=== PATIENT | female | born 1950 | race Caucasian/White ===

== ENCOUNTER → 2017-02-02 | Outpatient (CLI) | payer OTHER ==
[2015-08-18 16:56] VITALS: BP 184/89
--- NOTE | 2017-02-02 13:27 | MG ---
HISTORY: SCREENING Comparison: Multiple priors dating back to 12/22/2014 FINDINGS: Bilateral CC and MLO projections of the right and left breast were obtained. Dense fibroglandular t issue is seen to be present. No significant architectural distortion, mass or clustered microcalcif ications can be observed to suggest malignancy. No skin thickening or nipple retraction is apprecia samir. No pathological lymphadenopathy can be identified. Benign-appearing calcifications scattered throughout the right and left breasts are observed. IMPRESSION: NO RADIOGRAPHIC EVIDENCE OF MALIGNANCY. ACR CATEGORY: 2 - benign findings. FOLLOW-UP EXAM 1 YEAR. Diagnostic CAD was utilized and reviewed. * 0 (ZERO) - ASSESSMENT INCOMPLETE; ADDITIONAL IMAGING IS NEEDED. * 1/ (ONE) - NEGATIVE. * 2/II (TWO) - BENIGN FINDINGS. * 3/III (THREE) - PROBABLY BENIGN FINDING; SHORT INTERVAL FOLLOW-UP SUGGESTED. * 4/IV (FOUR) - SUSPICIOUS ABNORMALITY; BIOPSY SHOULD BE CONSIDERED. * 5/V - HIGHLY SUSPICIOUS OF MALIGNANCY; BIOPSY SHOULD BE PERFORMED. A NEGATIVE X-RAY REPORT SHOULD NOT DELAY BIOPSY IF A DOMINANT OR CLINICALLY SUSPICIOUS MASS IS PRESENT; 4 TO 8 PERCENT OF CANCERS ARE NOT IDENTIFIED BY X-RAY. A NEG ATIVE REPORT MAY REINFORCE THE CLINICAL IMPRESSION. ADENOSIS AND DENSE BREASTS MAY OBSCURE AN UNDER LYING NEOPLASM. Reported By:
== END ==
LOC: RAD 08:15
PROVIDERS: ATTEND Nurse Practitioner Family
DX: Z12.31 Encounter for screening mammogram for malignant neoplasm of breast (principal)
CPT/HCPCS: 77067

== ENCOUNTER → 2017-03-28 | Outpatient (CLI) | payer OTHER ==
[2015-08-18 16:56] VITALS: BP 184/89
[~2017-03-28] MED LIST: NS 100 ML IV 100 ML IV ONE
[2017-03-28 08:22] LABS: ALANINE AMINOTRANSFERASE 22 Units/L (12-78); ALBUMIN 3.2 g/dL (3.4-5.0); ALKALINE PHOSPHATASE 54 Units/L (46-116); ASPARTATE AMINO TRANSFERASE 13 Units/L (15-37); BLOOD UREA NITROGEN 11 mg/dL (7-18); CARBON DIOXIDE 29.9 mmol/L (21-32); CHLORIDE 100 mmol/L (98-107); COR CA(FOR HYPOALB) 9.6 mg/dL (8.5-10.1); COR NA(FOR HYPERGLY) 131 mmol/L (136-145); CREATININE 0.68 mg/dL (0.55-1.02); GLUCOSE 172 mg/dL (65-99); SODIUM 129 mmol/L (136-145); TOTAL PROTEIN 7.4 g/dL (6.4-8.2); eGFR BLACK RACES > 60 (>60); eGFR NON BLACK RACES > 60 (>60)
--- NOTE | 2017-03-28 11:17 | CT ---
HISTORY: Right upper quadrant pain, right lower quadrant pain Study: CT abdomen pelvis with contrast Comparison: January 01, 2014 Technique: Axial post-contrast images with coronal and sagittal reformats. Dose reduction procedures were used with MA/kv adjusted for body size. Findings: The lung bases are clear. The liver, spleen, adrenal glands, and pancreas are within normal limits. No opaque stones are visible within the gallbladder. There is a sub centimeter benign hepatic cyst p resent. The kidneys are unobstructed and without stones or masses. No ureteral calculi are identifie d. Calcific atherosclerotic change is present in a nondilated abdominal aorta. No enlarged intraperi toneal or retroperitoneal lymphadenopathy is identified. The appendix is not identified with absolut e certainty. There are no secondary signs of appendicitis present. There are no findings suggestive of diverticulitis or colitis. Examination of the pelvis demonstrated no evidence for pelvic masses, pelvic fluid, or pelvic lymphadenopathy. No bladder abnormality is identified. No enlarged inguinal adenopathy is present. No abnormal inguinal masses are identified. There is no evidence for right gr oin hematoma or pseudoaneurysm. No lytic or blastic skeletal lesions are identified. IMPRESSION: No significant abnormality identified Reported By:
== END ==
LOC: RAD 07:34
PROVIDERS: ATTEND Nurse Practitioner Family
DX: R10.31 Right lower quadrant pain (principal); R10.11 Right upper quadrant pain; K21.9 Gastro-esophageal reflux disease without esophagitis
CPT/HCPCS: 36415; 74177; 80053; A4222

== ENCOUNTER 2018-02-24 09:25 | Emergency (ER) | payer MEDICAID, OTHER ==
[2018-02-24 09:30] VITALS: BMI 27.6
[2018-02-24] MEDS ORDERED: NITROGLYCERIN IV PREMIX 50 MG 50 MG/250 ML BAG IV PRN (09:32)
--- NOTE | 2018-02-24 09:39 | DR.CP ---
HPI - Time Seen Time seen: 09:20 - PCP Primary Care Physician: DENIZ FAIRCHILD - Complaint Chief Complaint:: PT C/O TIGHTNESS IN HER CHEST WITH HER HEART FEELING LIKE IT IS RACING. PT STATES SHE FEELS LIKE SHE IS GOING TO PASS OUT. PT STATES SHE STARTED FEELING LIKE THIS LAST NIGHT, BUT IT HAS GOTTEN WORSE THIS AM. - Reviewed Nurses Notes Review: Yes - Source History Provided: Patient - Mode of Arrival Mode of Arrival: Ambulatory - Timing Onset of Chief Complaint: 02/23/18 Came on: Gradually Pain: Present Now - Duration Duration: Since Onset - Context History of: IN, Angioplasty PMH - PMH Past Medical History: Yes Past Medical History: Coronary Artery Disease, Diabetes, Hypertension Past Surgical History: Yes Surgical History: Angioplasty/Stents, Hysterectomy - Family History History of Family Medical Conditions: Yes Family Medical History: Sudden Cardiac - Social History Does any household member use tobacco: No Alcohol Use: None Do you use any recreational Drugs:: No Lives With: Family Lives Where: Home - infectious screening In the last 2 months have you had wt loss of >10#?: NO Have you had fever, night sweats or hemotysis?: No Have you traveled outside the country in the last 6 months?: No Isolation: Standard ROS - Review of Systems Constitutional: See HPI Eyes: Tearing (chronic left eye tearing) ENTM: No Symptoms Reported Respiratoy: No Symptoms Reported Cardiovascular: Chest Pain, Palpitations Gastrointestinal/Abdominal: No Symptoms Reported Genitourinary: No Symptoms Reported Neurological: Anxiety Musculoskeletal: No Symptoms Reported Integumentary: No Symptoms Reported Hematologic/Lymphatic: No Symptoms Reported Endocrine: No Symptoms Reported Psychiatric: No Symptoms Reported All Other Systems: Reviewed and Negative PE - Vitals Vitals: Temperature 97.6 F Pulse Rate [Apical] 37 Pulse Rate 48 Respiratory Rate 17 Blood Pressure [Left Arm] 176/74 Blood Pressure 211/89 O2 Sat by Pulse Oximetry 98 - General Limitations: No Limitations General Appearance: Alert, In No Apparent Distress, Anxious - Head Head Exam: Normal Inspection, Normocephalic - Eyes Eye exam: Normal Appearance - ENT ENT Exam: Normal Exam - Chest Chest Inspection: Normal Inspection - Respiratory Respiratory Exam: Normal Lung Sounds Bilat. negative: Accessory Muscle Use Respiratory Exam: Bilateral Clear to Auscultation - Cardiovascular Cardiovascular Exam: Regular Rate, Normal Rhythm, Bradycardia, Normal Heart Sounds. negative: Systolic Murmur, Diastolic Murmur, Rubs, Gallop, Clicks Pulse: Normal Edema: Normal - Abdominal Exam Abdominal Exam: Normal Inspection, Normal Bowel Sounds, Soft. negative: Tenderness - Extremities Extremities Exam: Normal Inspection, Full ROM. negative: Edema - Neurologic Neurological Exam: Alert, Oriented X3 - Psychiatric Psychiatric Exam: Normal Affect, Normal Mood - Skin Skin Exam: Warm, Dry, Intact. negative: Diaphoresis, Pallor Course - Consultation Consultation Comments: spoke with Dr Daniels(cards) and Dr Corbett([facility]). OK to transfer [facility] for [facility] ROR - Labs Reviewed Laboratory Results Reviewed?: Yes (labs reviewed w/pt and family) Result Diagrams: 02/24/18 09:40 02/24/18 09:40 Laboratory: WBC 12.3 X10^3/uL (3.6-10.0) H 02/24/18 09:40 RBC 4.72 X10^6/uL (3.5-5.4) 02/24/18 09:40 Hgb 13.7 g/dL (12.0-16.0) 02/24/18 09:40 Hct 39.7 % (36.0-47.0) 02/24/18 09:40 MCV 84.2 fL (80.0-100.0) 02/24/18 09:40 MCH 29.0 pg (27.0-34.0) 02/24/18 09:40 MCHC 34.4 g/dL (33.0-35.0) 02/24/18 09:40 RDW 15.9 % (11.6-16.5) 02/24/18 09:40 Plt Count 244 X10^3/uL (150.0-450.0) 02/24/18 09:40 MPV 8.4 fL (7.4-11.0) 02/24/18 09:40 Neut % (Auto) 57.1 % (42.0-75.0) 02/24/18 09:40 Lymph % (Auto) 32.8 % (21.0-51.0) 02/24/18 09:40 [place] % (Auto) 6.2 % (0.0-13.0) 02/24/18 09:40 Eos % (Auto) 2.2 % (0.9-2.9) 02/24/18 09:40 Baso % (Auto) 1.7 % (0.2-1.0) H 02/24/18 09:40 Neut # (Auto) 7.0 x10^3/uL (2.2-4.8) H 02/24/18 09:40 Lymph # (Auto) 4.0 X10^3/uL (1.3-2.9) H 02/24/18 09:40 [place] # (Auto) 0.8 x10^3/uL (0.3-0.8) 02/24/18 09:40 Eos # (Auto) 0.3 x10^3/uL (0.0-0.2) H 02/24/18 09:40 Baso # (Auto) 0.2 X10^3/uL (0.0-0.1) H 02/24/18 09:40 Absolute Nucleated RBC 0.0 /100WBC 02/24/18 09:40 INR Target Range - 02/24/18 09:40 INR 0.96 (0.8-1.3) 02/24/18 09:40 APTT 27.4 SECONDS (22.9-36.5) 02/24/18 09:40 PTT Comment - 02/24/18 09:40 D-Dimer 594 ng/mL (0-400) H* 02/24/18 09:40 Sodium 134 mmol/L (136-145) L 02/24/18 09:40 Corrected Sodium 138 mmol/L (136-145) 02/24/18 09:40 Potassium 4.2 mmol/L (3.5-5.1) 02/24/18 09:40 Chloride 100 mmol/L (98-107) 02/24/18 09:40 Carbon Dioxide 24.5 mmol/L (21-32) 02/24/18 09:40 BUN 14 mg/dL (7-18) 02/24/18 09:40 Creatinine 0.74 mg/dL (0.55-1.02) 02/24/18 09:40 Est GFR (MDRD) Af Amer > 60 (>60) 02/24/18 09:40 Est GFR (MDRD) Non-Af > 60 (>60) 02/24/18 09:40 Glucose 256 mg/dL (65-99) H 02/24/18 09:40 Calcium 8.8 mg/dL (8.5-10.1) 02/24/18 09:40 Corrected Calcium TNP 02/24/18 09:40 Magnesium 1.7 mg/dL (1.7-2.9) 02/24/18 09:40 Total Bilirubin 0.40 mg/dL (0.2-1.0) 02/24/18 09:40 AST 17 Units/L (15-37) 02/24/18 09:40 ALT 30 Units/L (12-78) 02/24/18 09:40 Alkaline Phosphatase 62 Units/L (46-116) 02/24/18 09:40 Creatine Kinase 27 Units/L (26-192) 02/24/18 09:40 CK-MB (CK-2) < 1.0 ng/mL (0-4.0) 02/24/18 09:40 CK/CKMB % Calc 3.7 % (<4) 02/24/18 09:40 Troponin I < 0.02 ng/mL (0-1.5) 02/24/18 09:40 Total Protein 7.4 g/dL (6.4-8.2) 02/24/18 09:40 Albumin 3.5 g/dL (3.4-5.0) 02/24/18 09:40 Globulin 3.9 g/dL (2.5-4.5) 02/24/18 09:40 Albumin/Globulin Ratio 0.9 Ratio (1.1-2.1) L 02/24/18 09:40 - XRAY XRAY Interpreted by: Radiologist XRAY Findings: nonacute - EKG Compared to prior EKG Dated: 10/26/14 (new 2:1AV block, rate 41) - Diagnosis Discharge Problem: Heart block AV second degree, Bradycardia with 41-50 beats per minute Chest pain Qualifiers: Chest pain type: unspecified Qualified Code(s): R07.9 - Chest pain, unspecified - Discharge Plan Disposition: XFER [facility]-TRM HOSP Condition: Stable - Follow ups/Referrals Follow ups/Referrals: Umberto Dumont [Primary Care Provider] - 3 days - Instructions
[2018-02-24] MEDS ORDERED: ASPIRIN EC 81 MG PO ONE (09:40)
[2018-02-24 09:48] LABS: BASOPHILS # (AUTO) 0.2 X10^3/uL (0.0-0.1); BASOPHILS % (AUTO) 1.7 % (0.2-1.0); EOSINOPHILS # (AUTO) 0.3 x10^3/uL (0.0-0.2); EOSINOPHILS % (AUTO) 2.2 % (0.9-2.9); HEMATOCRIT 39.7 % (36.0-47.0); HEMOGLOBIN 13.7 g/dL (12.0-16.0); LYMPHOCYTES % (AUTO) 32.8 % (21.0-51.0); MEAN CORPUSCULAR HGB CONC 34.4 g/dL (33.0-35.0); MEAN CORPUSCULAR VOLUME 84.2 fL (80.0-100.0); MEAN PLATELET VOLUME 8.4 fL (7.4-11.0); MONOCYTES # (AUTO) 0.8 x10^3/uL (0.3-0.8); MONOCYTES % (AUTO) 6.2 % (0.0-13.0); NEUTROPHILS % (AUTO) 57.1 % (42.0-75.0); PLATELET COUNT 244 X10^3/uL (150.0-450.0); RED BLOOD COUNT 4.72 X10^6/uL (3.5-5.4); RED CELL DISTRIBUTION WIDTH 15.9 % (11.6-16.5); WHITE BLOOD COUNT 12.3 X10^3/uL (3.6-10.0)
[2018-02-24 10:07] LABS: BLOOD UREA NITROGEN 14 mg/dL (7-18); CALCIUM 8.8 mg/dL (8.5-10.1); CARBON DIOXIDE 24.5 mmol/L (21-32); CHLORIDE 100 mmol/L (98-107); COR NA(FOR HYPERGLY) 138 mmol/L (136-145); CREATININE 0.74 mg/dL (0.55-1.02); SODIUM 134 mmol/L (136-145); TROPONIN I < 0.02 ng/mL (0-1.5); eGFR BLACK RACES > 60 (>60); eGFR NON BLACK RACES > 60 (>60)
[2018-02-24 10:11] LABS: ALANINE AMINOTRANSFERASE 30 Units/L (12-78); ALBUMIN 3.5 g/dL (3.4-5.0); ALKALINE PHOSPHATASE 62 Units/L (46-116); ASPARTATE AMINO TRANSFERASE 17 Units/L (15-37); CREATINE KINASE 27 Units/L (26-192); CREATINE KINASE MB < 1.0 ng/mL (0-4.0); MAGNESIUM 1.7 mg/dL (1.7-2.9); TOTAL PROTEIN 7.4 g/dL (6.4-8.2)
[2018-02-24 10:14] LABS: CKMB % 3.7 % (<4)
--- NOTE | 2018-02-24 10:14 | RAD ---
Examination: AP chest History: Tightness in chest Comparison 10/26/2014 Findings: Continued normal heart size with clear lungs and pleural spaces. Impression: No change; no acute chest findings. Reported By:
[2018-02-24] MEDS ORDERED: ASPIRIN 81 MG CHEWTAB ONE (10:27)
[2018-02-24] MEDS ORDERED: NITRO-BID OINT 2% Multi-Dose tube TD ONE (11:30)
[2018-02-24] MEDS ORDERED: NITRO-BID OINT 2% Multi-Dose tube ONE (11:35)
[2018-02-24 12:09] VITALS: BP 181/92
== END 2018-02-24 12:05 | disposition short-term general hospital (02) ==
LOC: ER 09:38
DX: R07.89 Other chest pain (principal); I44.1 Atrioventricular block, second degree; R00.1 Bradycardia, unspecified; R94.31 Abnormal electrocardiogram [ECG] [EKG]
CPT/HCPCS: 36415; 71045; 80053; 82550; 82553; 83735; 84484; 85025; 85378; 85610; 85730; 93005; 96365; 99284; A4222

== ENCOUNTER 2018-04-30 07:25 | Inpatient (IN) ==
[2018-04-30 07:42] VITALS: BMI 26.2
--- NOTE | 2018-04-30 07:51 | DR.NAUSEAF ---
HPI - Time Seen Time seen: 08:20 <MARIBEL LLANOS - Last Filed: 04/30/18 10:06> - Primary Care Physician Primary Care Physician: DENIZ FAIRCHILD - Complaints Chief Complaint Doctors Comments: HISTORY BELOW. Chief Complaint:: NAUSEA AND VOMITING ONSET AT 4AM. VOMITED X2. PAIN UNDER LEFT ARM PIT THAT HAS RESOLVED ON ADMISSION. SHE REPORTS IT FELT LIKE GAS AND IS BELCHING ON ARRIVAL. DENIES PAIN - Reviewed Nurses Notes Reviewed: Yes - Source History Provided: Patient, EMS - Mode of Arrival Mode of Arrival: EMS - Timing Onset of Chief Complaint: 04/30/18 - Context Onset: Spontaneous Recent: None : No History of: Diabetes - Quality Quality: Bilious - Associated Signs and Symptoms Abdominal Pain Quality: Other (NONE) Symptoms: denies: Fever <JAGRUTI LEWIS - Last Filed: 06/08/18 16:01> PMH - PMH Past Medical History: Yes Past Medical History: Coronary Artery Disease, Diabetes, Hypertension Past Surgical History: Yes Surgical History: Angioplasty/Stents, Hysterectomy Past Surgical History Comment: PACEMAKEER PLACED 1 MTH AGO - Family History History of Family Medical Conditions: Yes Family Medical History: Diabetes Mellitus, OR, Coronary Artery Disease, Heart Failure, Sudden Cardiac , Hypertension - Social History Do you use any recreational Drugs:: No Lives With: Alone Lives Where: Home - infectious screening In the last 2 months have you had wt loss of >10#?: NO Have you had fever, night sweats or hemotysis?: No Have you traveled outside the country in the last 6 months?: No Isolation: Standard <JAGRUTI LEWIS - Last Filed: 06/08/18 16:01> ROS - Review of Systems Constitutional: Weakness, Fatigue Eyes: No Symptoms Reported ENTM: No Symptoms Reported. negative: Ear Pain, Nose Discharge, Nose Congestion , Throat Pain Respiratoy: Short of Breath (ON EXERTION). negative: Productive Cough, Wheezing , Hemoptysis Cardiovascular: Other (PAIN LEFT ARM PIT) Gastrointestinal/Abdominal: Nausea, Vomiting. negative: Diarrhea Genitourinary: No Symptoms Reported Neurological: Weakness Musculoskeletal: No Symptoms Reported Integumentary: No Symptoms Reported Hematologic/Lymphatic: No Symptoms Reported Endocrine: No Symptoms Reported All Other Systems: Reviewed and Negative <JAGRUTI LEWIS - Last Filed: 06/08/18 16:01> PE - General Limitations: No Limitations General Appearance: Alert - Head Head Exam: Normal Inspection - Eyes Eye exam: Normal Appearance - ENT ENT Exam: Normal External Ear Exam - Neck Neck Exam: Trachea Midline - Chest Chest Inspection: Symmetric Chest Wall Rise - Respiratory Respiratory Exam: Normal Lung Sounds Bilat <JAGRUTI LEWIS - Last Filed: 06/08/18 16:01> - Vital Signs Vitals: Temperature 98.9 F Pulse Rate [Apical] 105 Pulse Rate 76 Respiratory Rate 22 Blood Pressure [Left Arm] 129/62 Blood Pressure 138/71 O2 Sat by Pulse Oximetry 95 Course - Reevaluation 1st: Improved (Antiemetic) - Consultation Called: 09:50 (Dr Posadas agreed to admit for further treatment) <MARIBEL LLANOS - Last Filed: 04/30/18 10:06> ROR - Labs Reviewed Result Diagrams: 04/30/18 08:45 04/30/18 08:45 - XRAY XRAY Interpreted by: Radiologist (Minimal atelectatic change/infiltrate in the left lung base. No evidence of bowel obstruction or penumoperitoneum. Small to moderate amount of stool present in the asending colon, transverse colon and desending colon) <MARIBEL LLANOS - Last Filed: 04/30/18 10:06> - Labs Reviewed Result Diagrams: 05/03/18 05:27 05/03/18 05:27 <JAGRUTI LEWIS - Last Filed: 06/08/18 16:01> - Labs Reviewed Laboratory: WBC 25.8 X10^3/uL (3.6-10.0) H 04/30/18 08:45 RBC 4.75 X10^6/uL (3.5-5.4) 04/30/18 08:45 Hgb 13.0 g/dL (12.0-16.0) 04/30/18 08:45 Hct 40.0 % (36.0-47.0) 04/30/18 08:45 MCV 84.3 fL (80.0-100.0) 04/30/18 08:45 MCH 27.4 pg (27.0-34.0) 04/30/18 08:45 MCHC 32.5 g/dL (33.0-35.0) L 04/30/18 08:45 RDW 15.3 % (11.6-16.5) 04/30/18 08:45 Plt Count 386 X10^3/uL (150.0-450.0) 04/30/18 08:45 Plt Count Comment Adequate (ADEQUATE) 04/30/18 08:45 MPV 8.9 fL (7.4-11.0) 04/30/18 08:45 Neut % (Auto) 82.8 % (42.0-75.0) H 04/30/18 08:45 Lymph % (Auto) 10.0 % (21.0-51.0) L 04/30/18 08:45 [place] % (Auto) 6.5 % (0.0-13.0) 04/30/18 08:45 Eos % (Auto) 0.1 % (0.9-2.9) L 04/30/18 08:45 Baso % (Auto) 0.6 % (0.2-1.0) 04/30/18 08:45 Neut # (Auto) 21.4 x10^3/uL (2.2-4.8) H 04/30/18 08:45 Lymph # (Auto) 2.6 X10^3/uL (1.3-2.9) 04/30/18 08:45 [place] # (Auto) 1.7 x10^3/uL (0.3-0.8) H 04/30/18 08:45 Eos # (Auto) 0.0 x10^3/uL (0.0-0.2) 04/30/18 08:45 Baso # (Auto) 0.1 X10^3/uL (0.0-0.1) 04/30/18 08:45 Absolute Nucleated RBC 0.1 /100WBC 04/30/18 08:45 Total Counted 100 04/30/18 08:45 Neutrophils % (Manual) 89 % (39-76) H 04/30/18 08:45 Band Neutrophils % 2 % (0-10) 04/30/18 08:45 Lymphocytes % (Manual) 8 % (13-43) L 04/30/18 08:45 Monocytes % (Manual) 1 % (4-9) L 04/30/18 08:45 Plt Clumps, EDTA Rare 04/30/18 08:45 Plt Morphology Comment Normal (NORMAL) 04/30/18 08:45 RBC Morphology Normal (NORMAL) 04/30/18 08:45 Sodium 129 mmol/L (136-145) L 04/30/18 08:45 Corrected Sodium 135 mmol/L (136-145) L 04/30/18 08:45 Potassium 5.3 mmol/L (3.5-5.1) H 04/30/18 08:45 Chloride 96 mmol/L (98-107) L 04/30/18 08:45 Carbon Dioxide 18.7 mmol/L (21-32) L 04/30/18 08:45 BUN 14 mg/dL (7-18) 04/30/18 08:45 Creatinine 0.92 mg/dL (0.55-1.02) 04/30/18 08:45 Est GFR (MDRD) Af Amer > 60 (>60) 04/30/18 08:45 Est GFR (MDRD) Non-Af > 60 (>60) 04/30/18 08:45 Glucose 338 mg/dL (65-99) H 04/30/18 08:45 Calcium 10.2 mg/dL (8.5-10.1) H 04/30/18 08:45 Corrected Calcium 10.9 mg/dL (8.5-10.1) H 04/30/18 08:45 Total Bilirubin 0.70 mg/dL (0.2-1.0) 04/30/18 08:45 AST 12 Units/L (15-37) L 04/30/18 08:45 ALT 14 Units/L (12-78) 04/30/18 08:45 Alkaline Phosphatase 82 Units/L (46-116) 04/30/18 08:45 Total Protein 8.4 g/dL (6.4-8.2) H 04/30/18 08:45 Albumin 3.1 g/dL (3.4-5.0) L 04/30/18 08:45 Globulin 5.3 g/dL (2.5-4.5) H 04/30/18 08:45 Albumin/Globulin Ratio 0.6 Ratio (1.1-2.1) L 04/30/18 08:45 <MARIBEL LLANOS - Last Filed: 04/30/18 10:06> <JAGRUTI LEWIS - Last Filed: 06/08/18 16:01> - Diagnosis Discharge Problem: Hyperkalemia, Atelectasis of left lung Constipation Qualifiers: Constipation type: slow transit constipation Qualified Code(s): K59.01 - Slow transit constipation LLL pneumonia Qualifiers: Pneumonia type: due to unspecified organism Qualified Code(s): J18.1 - Lobar pneumonia, unspecified organism - Discharge Plan Disposition: 09 ADMITTED INPATIENT Condition: Stable
[2018-04-30] MEDS ORDERED: NS 1000 ML 1,000 ML IV ONE (08:14)
[2018-04-30] MEDS ORDERED: ZOFRAN INJ 4 MG VIAL IVP ONE (08:14)
[2018-04-30] MEDS ORDERED: NS 1000 ML 1,000 ML ONE (08:16)
--- NOTE | 2018-04-30 08:51 | RAD ---
HISTORY: Nausea and vomiting Study: Upright PA chest with supine and upright abdominal views. Comparison: CT of the abdomen pelvis 03/28/2017, AP chest 02/24/2018 Findings: There is minimal atelectatic change/infiltrate in the left lung base and what appears to most likely be a tiny amount of pleural effusion versus pleural scarring. The heart size is normal. Since the p rior examination a left-sided electronic cardiac device has been placed. Its electrodes appear to be in satisfactory position. No acute bony abnormalities are identified. A small to moderate amount of stool present in the ascending colon, transverse colon and descending c olon. I see no evidence of bowel obstruction or pneumoperitoneum. No abnormal calcifications are se en to overlie the renal shadows. Small calcifications are present in new low pelvis, most likely phl eboliths. [id number] lumbar spondylosis is noted. IMPRESSION: 1. Minimal atelectatic change/infiltrate in the left lung base, new. 2. Electronic cardiac device is present on the left with its leads appearing to be in appropriate po sition. This is new. 3. No evidence of bowel obstruction or pneumoperitoneum. 4. Stool within the colon as described above. Reported By:
[2018-04-30 09:18] LABS: ALANINE AMINOTRANSFERASE 14 Units/L (12-78); ALBUMIN 3.1 g/dL (3.4-5.0); ALKALINE PHOSPHATASE 82 Units/L (46-116); ASPARTATE AMINO TRANSFERASE 12 Units/L (15-37); BASOPHILS # (AUTO) 0.1 X10^3/uL (0.0-0.1); BASOPHILS % (AUTO) 0.6 % (0.2-1.0); BLOOD UREA NITROGEN 14 mg/dL (7-18); CALCIUM 10.2 mg/dL (8.5-10.1); CARBON DIOXIDE 18.7 mmol/L (21-32); CHLORIDE 96 mmol/L (98-107); COR CA(FOR HYPOALB) 10.9 mg/dL (8.5-10.1); COR NA(FOR HYPERGLY) 135 mmol/L (136-145); CREATININE 0.92 mg/dL (0.55-1.02); EOSINOPHILS % (AUTO) 0.1 % (0.9-2.9); LYMPHOCYTES # (AUTO) 2.6 X10^3/uL (1.3-2.9); MEAN CORPUSCULAR HEMOGLOBIN 27.4 pg (27.0-34.0); MEAN CORPUSCULAR HGB CONC 32.5 g/dL (33.0-35.0); MEAN CORPUSCULAR VOLUME 84.3 fL (80.0-100.0); MEAN PLATELET VOLUME 8.9 fL (7.4-11.0); MONOCYTES # (AUTO) 1.7 x10^3/uL (0.3-0.8); MONOCYTES % (AUTO) 6.5 % (0.0-13.0); NEUTROPHILS # (AUTO) 21.4 x10^3/uL (2.2-4.8); NEUTROPHILS % (AUTO) 82.8 % (42.0-75.0); PLATELET COUNT 386 X10^3/uL (150.0-450.0); RED BLOOD COUNT 4.75 X10^6/uL (3.5-5.4); RED CELL DISTRIBUTION WIDTH 15.3 % (11.6-16.5); SODIUM 129 mmol/L (136-145); TOTAL PROTEIN 8.4 g/dL (6.4-8.2); WHITE BLOOD COUNT 25.8 X10^3/uL (3.6-10.0); eGFR NON BLACK RACES > 60 (>60)
[2018-04-30 09:27] LABS: BAND NEUTROPHILS % 2 % (0-10)
[2018-04-30 09:28] LABS: PLATELET MORPHOLOGY COMMENT NORMAL (NORMAL)
[2018-04-30] MEDS ORDERED: PHENERGAN INJ 25 MG IV ONE (09:58)
[2018-04-30] MEDS ORDERED: PHENERGAN INJ 25 MG ONE (10:00)
[2018-04-30] MEDS ORDERED: SODIUM BICARBONATE 8.4% INJ ADULT IVP ONE (10:03)
[2018-04-30] MEDS ORDERED: D50W ABBOJECT SYR IV ONE (10:03)
[2018-04-30] MEDS ORDERED: CALCIUM GLUCONATE 10% IV ONE ×2 (10:03→11:12)
[2018-04-30] MEDS ORDERED: HumuLIN R IV ONE (10:04)
[2018-04-30] MEDS ORDERED: KAYEXALATE SUSP PO ONE (10:06)
[2018-04-30] MEDS ORDERED: ACCUNEB 1.25 MG NEBULE NEB ONE (10:20)
[2018-04-30] MEDS ORDERED: Atrovent NEB TX 0.02% ONE (10:29)
[2018-04-30] MEDS ORDERED: NS 1/2 1000 ML IV 1,000 ML IV ONE (10:37)
[2018-04-30] MEDS: NS 1/2 1000 ML IV 1,000 ML IV SCH (10:45)
[2018-04-30] MEDS ORDERED: D50W ABBOJECT SYR ONE (11:13)
[2018-04-30] MEDS ORDERED: HumuLIN R ONE (11:26)
[2018-04-30] MEDS ORDERED: PROVENTIL NEB TX 0.083% 2.5MG/ 3ML ONE (11:34)
[2018-04-30] MEDS: ACCUNEB 1.25 MG NEBULE NEB ONE ×2 (11:40→11:42)
[2018-04-30] MEDS ORDERED: PROVENTIL NEB TX 0.083% 2.5MG/ 3ML NEB ONE (11:41)
[2018-04-30] MEDS ORDERED: SODIUM BICARBONATE 8.4% INJ ADULT ONE (11:47)
--- NOTE | 2018-04-30 14:47 | CT ---
History: Nausea and vomiting since 4:00 a[address]m.. Study: CT abdomen and pelvis utilizing 100 mL Omnipaque 350 IV contrast. Sagittal and coronal reforma tions were provided. Comparison: March 28, 2017 Findings: There is a tiny left pleural effusion and there is a new small pericardial effusion. There is a streaky central infiltrate in the right middle lobe and at the posterior basilar segment of the left lower lobe. There is an unchanged small cyst ventrally in the liver. The spleen and pancreas and adrenal glands and kidneys remain unremarkable. The gallbladder is unremarkable. There is no biliary dilatation. The appendix is normal. There is no ascites or retroperitoneal adenopathy. The uterus is absent. There is no adnexal mass. There are nondistended primarily fluid-filled loops of small bowel without wall thickening. No significant diverticular disease is demonstrated. No significant bony ab normality is demonstrated. Impression: 1. Tiny right pleural effusion and small pericardial effusion 2. Right middle lobe perihilar pneumonia 3. No acute disease in the abdomen or pelvis is demonstrated Reported By:
[2018-04-30] MEDS: LEVAQUIN PREMIX IV 500 MG 500 MG/100 ML BAG IV SCH (15:46)
[2018-04-30] MEDS: DUONEB 0.5 MG/3 MG NEB SCH ×2 (16:00→21:38)
[2018-04-30] MEDS ORDERED: SALINE 3% 15 ML NEB TX NEB ONE (16:00)
[2018-04-30] MEDS ORDERED: SALINE 3% 15 ML NEB TX ONE (16:05)
[2018-04-30] MEDS: ZOFRAN INJ 4 MG VIAL IVP PRN (17:32)
[2018-04-30] MEDS: PHENERGAN INJ 25 MG IV PRN (20:28)
[2018-04-30] MEDS: SNACK - Diabetic Appropriate PO SCH (21:51)
[2018-05-01] MEDS: DUONEB 0.5 MG/3 MG NEB SCH ×6 (01:35→21:57)
[2018-05-01 05:05] LABS: BASOPHILS # (AUTO) 0.1 X10^3/uL (0.0-0.1); BASOPHILS % (AUTO) 0.5 % (0.2-1.0); HEMATOCRIT 35.7 % (36.0-47.0); HEMOGLOBIN 11.8 g/dL (12.0-16.0); LYMPHOCYTES # (AUTO) 1.6 X10^3/uL (1.3-2.9); LYMPHOCYTES % (AUTO) 13.6 % (21.0-51.0); MEAN CORPUSCULAR HEMOGLOBIN 27.7 pg (27.0-34.0); MEAN CORPUSCULAR HGB CONC 33.2 g/dL (33.0-35.0); MEAN CORPUSCULAR VOLUME 83.4 fL (80.0-100.0); MONOCYTES # (AUTO) 1.5 x10^3/uL (0.3-0.8); MONOCYTES % (AUTO) 12.3 % (0.0-13.0); NEUTROPHILS # (AUTO) 8.8 x10^3/uL (2.2-4.8); NEUTROPHILS % (AUTO) 73.6 % (42.0-75.0); PLATELET COUNT 380 X10^3/uL (150.0-450.0); RED BLOOD COUNT 4.28 X10^6/uL (3.5-5.4); RED CELL DISTRIBUTION WIDTH 15.4 % (11.6-16.5)
[2018-05-01 05:16] LABS: ALANINE AMINOTRANSFERASE 11 Units/L (12-78); ALBUMIN 2.2 g/dL (3.4-5.0); ALKALINE PHOSPHATASE 57 Units/L (46-116); ASPARTATE AMINO TRANSFERASE 20 Units/L (15-37); BLOOD UREA NITROGEN 27 mg/dL (7-18); CALCIUM 8.7 mg/dL (8.5-10.1); CARBON DIOXIDE 20.5 mmol/L (21-32); CHLORIDE 98 mmol/L (98-107); COR CA(FOR HYPOALB) 10.1 mg/dL (8.5-10.1); COR NA(FOR HYPERGLY) 137 mmol/L (136-145); CREATININE 1.14 mg/dL (0.55-1.02); SODIUM 131 mmol/L (136-145); eGFR NON BLACK RACES 50 (>60)
[2018-05-01] MEDS ORDERED: NS 1/2 1000 ML IV 1,000 ML IV ONE ×2 (05:23→19:35)
[2018-05-01] MEDS: NS 1/2 1000 ML IV 1,000 ML IV SCH ×2 (05:57→13:14)
[2018-05-01] MEDS: PHENERGAN INJ 25 MG IV PRN ×2 (07:50→17:04)
[2018-05-01] MEDS: LEVAQUIN PREMIX IV 500 MG 500 MG/100 ML BAG IV SCH (08:48)
[2018-05-01] MEDS: ZOFRAN INJ 4 MG VIAL IVP PRN ×2 (13:18→21:40)
[2018-05-01] MEDS: SNACK - Diabetic Appropriate PO SCH (21:13)
[2018-05-02] MEDS: DUONEB 0.5 MG/3 MG NEB SCH ×6 (01:29→21:28)
[2018-05-02] MEDS: NS 1/2 1000 ML IV 1,000 ML IV SCH (05:09)
[2018-05-02 06:21] LABS: BASOPHILS # (AUTO) 0.1 X10^3/uL (0.0-0.1); BASOPHILS % (AUTO) 0.5 % (0.2-1.0); EOSINOPHILS # (AUTO) 0.1 x10^3/uL (0.0-0.2); EOSINOPHILS % (AUTO) 0.7 % (0.9-2.9); HEMATOCRIT 31.2 % (36.0-47.0); HEMOGLOBIN 10.5 g/dL (12.0-16.0); LYMPHOCYTES # (AUTO) 2.1 X10^3/uL (1.3-2.9); LYMPHOCYTES % (AUTO) 18.6 % (21.0-51.0); MEAN CORPUSCULAR HEMOGLOBIN 27.9 pg (27.0-34.0); MEAN CORPUSCULAR HGB CONC 33.6 g/dL (33.0-35.0); MEAN CORPUSCULAR VOLUME 83.1 fL (80.0-100.0); MEAN PLATELET VOLUME 8.6 fL (7.4-11.0); NEUTROPHILS % (AUTO) 71.2 % (42.0-75.0); PLATELET COUNT 243 X10^3/uL (150.0-450.0); RED BLOOD COUNT 3.76 X10^6/uL (3.5-5.4); RED CELL DISTRIBUTION WIDTH 14.9 % (11.6-16.5); WHITE BLOOD COUNT 11.2 X10^3/uL (3.6-10.0)
[2018-05-02 06:32] LABS: ALANINE AMINOTRANSFERASE 10 Units/L (12-78); ALKALINE PHOSPHATASE 55 Units/L (46-116); ASPARTATE AMINO TRANSFERASE 12 Units/L (15-37); BLOOD UREA NITROGEN 6 mg/dL (7-18); CALCIUM 7.6 mg/dL (8.5-10.1); CARBON DIOXIDE 20.6 mmol/L (21-32); CHLORIDE 102 mmol/L (98-107); COR CA(FOR HYPOALB) 9.2 mg/dL (8.5-10.1); COR NA(FOR HYPERGLY) 137 mmol/L (136-145); CREATININE 0.67 mg/dL (0.55-1.02); SODIUM 134 mmol/L (136-145); TOTAL PROTEIN 6.4 g/dL (6.4-8.2); eGFR NON BLACK RACES > 60 (>60)
[2018-05-02 06:51] LABS: PLATELET MORPHOLOGY COMMENT NORMAL (NORMAL)
--- NOTE | 2018-05-02 07:08 | RAD ---
HISTORY: Fecal retention Study: Abdomen series with AP chest Comparison: CT scan of the abdomen done 04/30/2018. Technique: KUB and upright views the abdomen are provided as well as an AP chest. Findings: Left-sided pacemaker is present with intact leads. Trachea is midline. There is cardiomegaly with aor tic uncoiling. A few linear foci of subsegmental atelectasis are present in the left lower lobe. The right lung is clear. Pleural spaces are clear. No pneumothorax is seen. Osseous structures are intact . There is increase in small bowel gas present in the mid epigastric region. Air and a small amount of stool is present throughout the colon. No significant stool burden is seen. There is mild gaseous dis tention of the stomach. No opaque stone is identified. There is no evidence of free intraperitoneal a ir or fluid. Degenerative disc disease and spondylosis are present at L4-5 level of the lumbar spine. No acute osseous changes are seen. IMPRESSION: Cardiomegaly with a few linear foci of subsegmental atelectasis present in the left lower lobe. Mild small bowel ileus. No evidence of bowel obstruction or perforation is seen. No significant stool burden is seen. Reported By:
[2018-05-02] MEDS ORDERED: NS 1/2 1000 ML IV 1,000 ML IV ONE (08:09)
[2018-05-02] MEDS: ZOFRAN INJ 4 MG VIAL IVP PRN (08:15)
[2018-05-02] MEDS ORDERED: LINZESS PO SCH (09:00)
[2018-05-02] MEDS ORDERED: XANAX PO PRN (09:10)
[2018-05-02] MEDS ORDERED: VITAMIN D (1.25MG) PO SCH (09:15)
[2018-05-02] MEDS ORDERED: POTASSIUM CHLORIDE PO SCH (09:15)
[2018-05-02] MEDS ORDERED: TOPROL XL PO SCH (10:00)
[2018-05-02] MEDS ORDERED: GLUCOPHAGE ONE ×2 (10:14→21:54)
[2018-05-02] MEDS: ASPIRIN EC 81 MG PO SCH (10:18)
[2018-05-02] MEDS: ZESTRIL TAB 40 MG PO SCH (10:18)
[2018-05-02] MEDS: LEVAQUIN PREMIX IV 500 MG 500 MG/100 ML BAG IV SCH (10:19)
[2018-05-02] MEDS: GLUCOPHAGE PO SCH ×2 (10:20→22:00)
[2018-05-02] MEDS: SYNTHROID 112 mcg TAB PO SCH (10:20)
[2018-05-02] MEDS: LIPITOR TAB 40 MG PO SCH (10:21)
[2018-05-02] MEDS: PLAVIX PO SCH (10:21)
[2018-05-02] MEDS: NS 1000 ML 1,000 ML IV SCH ×2 (10:22→17:49)
[2018-05-02] MEDS: MICRO K EXTEN CAP 10 MEQ PO SCH ×2 (11:03→22:00)
[2018-05-02] MEDS: ROCEPHIN VIAL 1 GRAM 1 G in NS 100 ML IV + SPIKE MINIBAG* 100 ML IV SCH (11:04)
[2018-05-02] MEDS: SNACK - Diabetic Appropriate PO SCH (21:00)
[2018-05-02] MEDS ORDERED: HumuLIN R ONE (21:57)
[2018-05-03] MEDS: DUONEB 0.5 MG/3 MG NEB SCH ×6 (01:15→21:26)
[2018-05-03] MEDS: NS 1000 ML 1,000 ML IV SCH ×4 (05:49→21:06)
[2018-05-03 06:05] LABS: BASOPHILS % (AUTO) 0.4 % (0.2-1.0); EOSINOPHILS # (AUTO) 0.1 x10^3/uL (0.0-0.2); EOSINOPHILS % (AUTO) 1.4 % (0.9-2.9); HEMATOCRIT 31.2 % (36.0-47.0); HEMOGLOBIN 10.5 g/dL (12.0-16.0); LYMPHOCYTES % (AUTO) 19.2 % (21.0-51.0); MEAN CORPUSCULAR HEMOGLOBIN 27.6 pg (27.0-34.0); MEAN CORPUSCULAR HGB CONC 33.7 g/dL (33.0-35.0); MEAN CORPUSCULAR VOLUME 82.1 fL (80.0-100.0); MONOCYTES # (AUTO) 0.7 x10^3/uL (0.3-0.8); MONOCYTES % (AUTO) 6.3 % (0.0-13.0); NEUTROPHILS # (AUTO) 7.7 x10^3/uL (2.2-4.8); NEUTROPHILS % (AUTO) 72.7 % (42.0-75.0); PLATELET COUNT 284 X10^3/uL (150.0-450.0); RED CELL DISTRIBUTION WIDTH 15.6 % (11.6-16.5); WHITE BLOOD COUNT 10.6 X10^3/uL (3.6-10.0)
[2018-05-03 06:21] LABS: ALANINE AMINOTRANSFERASE 13 Units/L (12-78); ALBUMIN 1.8 g/dL (3.4-5.0); ALKALINE PHOSPHATASE 53 Units/L (46-116); ASPARTATE AMINO TRANSFERASE 17 Units/L (15-37); BLOOD UREA NITROGEN 3 mg/dL (7-18); CALCIUM 7.4 mg/dL (8.5-10.1); CARBON DIOXIDE 21.6 mmol/L (21-32); CHLORIDE 109 mmol/L (98-107); COR CA(FOR HYPOALB) 9.2 mg/dL (8.5-10.1); COR NA(FOR HYPERGLY) 142 mmol/L (136-145); CREATININE 0.51 mg/dL (0.55-1.02); SODIUM 141 mmol/L (136-145); TOTAL PROTEIN 5.7 g/dL (6.4-8.2); eGFR NON BLACK RACES > 60 (>60)
--- NOTE | 2018-05-03 08:31 | RAD ---
HISTORY: Pneumonia Study: AP portable chest Comparison: 05/02/2018 Findings: There is mild patchy infiltrate in the lung bases, left greater than right, slightly increased. The heart size is borderline enlarged. The patient has a pacemaker present and its leads appear to be in appropriate position. No acute bony abnormalities are identified. IMPRESSION: 1. Borderline cardiomegaly without evidence of failure. 2. Slight interval increase in the bibasilar atelectatic change/infiltrate, left greater than right. Reported By:
[2018-05-03] MEDS: ASPIRIN EC 81 MG PO SCH (09:26)
[2018-05-03] MEDS: SYNTHROID 112 mcg TAB PO SCH (09:26)
[2018-05-03] MEDS: PLAVIX PO SCH (09:27)
[2018-05-03] MEDS: LIPITOR TAB 40 MG PO SCH (09:27)
[2018-05-03] MEDS: ZESTRIL TAB 40 MG PO SCH (09:27)
[2018-05-03] MEDS: GLUCOPHAGE PO SCH ×2 (09:27→21:05)
[2018-05-03] MEDS: ROCEPHIN VIAL 1 GRAM 1 G in NS 100 ML IV + SPIKE MINIBAG* 100 ML IV SCH (09:27)
[2018-05-03] MEDS: MICRO K EXTEN CAP 10 MEQ PO SCH ×2 (09:27→21:05)
[2018-05-03] MEDS ORDERED: GLUCOPHAGE ONE (21:00)
[2018-05-03] MEDS ORDERED: TYLENOL 325 MG TAB PO PRN (21:14)
[2018-05-04] MEDS: DUONEB 0.5 MG/3 MG NEB SCH ×3 (00:30→09:06)
[2018-05-04] MEDS ORDERED: GLUCOPHAGE ONE (08:00)
[2018-05-04] MEDS: NS 1000 ML 1,000 ML IV SCH ×2 (08:37→11:58)
[2018-05-04] MEDS: SYNTHROID 112 mcg TAB PO SCH (08:38)
[2018-05-04] MEDS: LIPITOR TAB 40 MG PO SCH (08:40)
[2018-05-04] MEDS: MICRO K EXTEN CAP 10 MEQ PO SCH (08:40)
[2018-05-04] MEDS: GLUCOPHAGE PO SCH (08:40)
[2018-05-04] MEDS: ASPIRIN EC 81 MG PO SCH (08:40)
[2018-05-04] MEDS: ROCEPHIN VIAL 1 GRAM 1 G in NS 100 ML IV + SPIKE MINIBAG* 100 ML IV SCH (08:41)
[2018-05-04] MEDS: PLAVIX PO SCH (08:43)
[2018-05-04] MEDS: ZESTRIL TAB 40 MG PO SCH (08:43)
[2018-05-04 13:08] VITALS: BP 141/68
--- NOTE | 2018-06-14 13:29 | DR.NAUSEAF ---
HPI Time Seen Time seen: 08:14 Primary Care Physician Primary Care Physician: ROMULO CAMPA Complaints Chief Complaint:: NAUSEA AND VOMITING ONSET AT 4AM. VOMITED X2. PAIN UNDER LEFT ARM PIT THAT HAS RESOLVED ON ADMISSION. SHE REPORTS IT FELT LIKE GAS AND IS BELCHING ON ARRIVAL. DENIES PAIN Source History Provided: Patient and EMS Mode of Arrival Mode of Arrival: EMS Timing Onset of Chief Complaint: 04/30/18 Context Recent: None Associated Signs and Symptoms Abdominal Pain Quality: Other (NONE) PMH PMH Past Medical History: Yes Past Medical History: Coronary Artery Disease, Diabetes and Hypertension Past Surgical History: Yes Surgical History: Angioplasty/Stents and Hysterectomy Past Surgical History Comment: PACEMAKEER PLACED 1 MTH AGO Family History History of Family Medical Conditions: Yes Family Medical History: Diabetes Mellitus, [place], Coronary Artery Disease, Heart Failure, Sudden Cardiac and Hypertension Social History Does patient currently use any type of tobacco product: No Have you used tobacco products in the last 12 months: No Type of Tobacco Use: None Does any household member use tobacco: No Alcohol Use: None Do you use any recreational Drugs:: No Lives With: Alone Lives Where: Home infectious screening In the last 2 months have you had wt loss of >10#?: NO Have you had fever, night sweats or hemotysis?: No Have you traveled outside the country in the last 6 months?: No Isolation: Standard ROS Review of Systems Constitutional: No Symptoms Reported Eyes: No Symptoms Reported ENTM: No Symptoms Reported Respiratoy: No Symptoms Reported Cardiovascular: No Symptoms Reported Gastrointestinal/Abdominal: No Symptoms Reported Genitourinary: No Symptoms Reported Neurological: No Symptoms Reported Musculoskeletal: No Symptoms Reported Integumentary: No Symptoms Reported Hematologic/Lymphatic: No Symptoms Reported Endocrine: No Symptoms Reported Psychiatric: No Symptoms Reported All Other Systems: Reviewed and Negative PE Vital Signs Vitals: Temperature 98.1 F Pulse Rate [Right Brachial] 100 Pulse Rate [Left Brachial] 85 Pulse Rate [Apical] 78 Pulse Rate 78 Respiratory Rate 20 Blood Pressure [Left Arm] 141/68 Blood Pressure 138/71 O2 Sat by Pulse Oximetry 99 General Limitations: No Limitations General Appearance: Alert and In No Apparent Distress Head Head Exam: Normal Inspection Eyes Eye exam: Normal Appearance ENT ENT Exam: Normal Exam Neck Neck Exam: Normal Inspection Chest Chest Inspection: Normal Inspection Respiratory Respiratory Exam: Normal Lung Sounds Bilat Respiratory Exam: Bilateral: Clear to Auscultation Cardiovascular Cardiovascular Exam: Regular Rate and Normal Rhythm Abdominal Exam Abdominal Exam: Normal Inspection, Normal Bowel Sounds and Soft Rectal Rectal Exam: Deferred External Exam: Female: Deferred : Speculum Exam (Female): Deferred : Bimanual Exam (female): Deferred Extremities Extremities Exam: Normal Inspection Back Back Exam: Normal Inspection Neurologic Neurological Exam: Alert and Oriented X3 Psychiatric Psychiatric Exam: Normal Affect and Normal Mood Skin Skin Exam: Warm, Dry, Intact and Normal Color ROR Labs Reviewed Result Diagrams: 05/03/18 05:27 05/03/18 05:27 Laboratory: 04/30/18 10:45 Blood Blood Culture - Final 04/30/18 10:20 Blood Blood Culture - Final 04/30/18 17:12 Sputum - Expectorated Sputum Sputum Culture - Final Escherichia Coli 04/30/18 17:12 Sputum - Expectorated Sputum - Final WBC 10.6 X10^3/uL (3.6-10.0) H 05/03/18 05:27 RBC 3.80 X10^6/uL (3.5-5.4) 05/03/18 05:27 Hgb 10.5 g/dL (12.0-16.0) L 05/03/18 05:27 Hct 31.2 % (36.0-47.0) L 05/03/18 05:27 MCV 82.1 fL (80.0-100.0) 05/03/18 05:27 MCH 27.6 pg (27.0-34.0) 05/03/18 05:27 MCHC 33.7 g/dL (33.0-35.0) 05/03/18 05:27 RDW 15.6 % (11.6-16.5) 05/03/18 05:27 Plt Count 284 X10^3/uL (150.0-450.0) 05/03/18 05:27 Plt Count Comment Adequate (ADEQUATE) 05/02/18 05:25 MPV 8.0 fL (7.4-11.0) 05/03/18 05:27 Neut % (Auto) 72.7 % (42.0-75.0) 05/03/18 05:27 Lymph % (Auto) 19.2 % (21.0-51.0) L 05/03/18 05:27 [place] % (Auto) 6.3 % (0.0-13.0) 05/03/18 05:27 Eos % (Auto) 1.4 % (0.9-2.9) 05/03/18 05:27 Baso % (Auto) 0.4 % (0.2-1.0) 05/03/18 05:27 Neut # (Auto) 7.7 x10^3/uL (2.2-4.8) H 05/03/18 05:27 Lymph # (Auto) 2.0 X10^3/uL (1.3-2.9) 05/03/18 05:27 [place] # (Auto) 0.7 x10^3/uL (0.3-0.8) 05/03/18 05:27 Eos # (Auto) 0.1 x10^3/uL (0.0-0.2) 05/03/18 05:27 Baso # (Auto) 0.0 X10^3/uL (0.0-0.1) 05/03/18 05:27 Absolute Nucleated RBC 0.1 /100WBC 05/03/18 05:27 Total Counted 100 05/02/18 05:25 Neutrophils % (Manual) 70 % (39-76) 05/02/18 05:25 Band Neutrophils % Bioinformatics Analyst 05/02/18 05:25 Lymphocytes % (Manual) 25 % (13-43) 05/02/18 05:25 Monocytes % (Manual) 5 % (4-9) 05/02/18 05:25 Eosinophils % (Manual) Bioinformatics Analyst 05/02/18 05:25 Plt Clumps, EDTA Rare 04/30/18 08:45 Plt Morphology Comment Normal (NORMAL) 05/02/18 05:25 RBC Morphology Normal (NORMAL) 05/02/18 05:25 Sodium 141 mmol/L (136-145) 05/03/18 05:27 Corrected Sodium 142 mmol/L (136-145) 05/03/18 05:27 Potassium 3.3 mmol/L (3.5-5.1) L 05/03/18 05:27 Chloride 109 mmol/L (98-107) H 05/03/18 05:27 Carbon Dioxide 21.6 mmol/L (21-32) 05/03/18 05:27 BUN 3 mg/dL (7-18) L 05/03/18 05:27 Creatinine 0.51 mg/dL (0.55-1.02) L 05/03/18 05:27 Est GFR (MDRD) Af Amer > 60 (>60) 05/03/18 05:27 Est GFR (MDRD) Non-Af > 60 (>60) 05/03/18 05:27 Glucose 159 mg/dL (65-99) H 05/03/18 05:27 POC Glucose (mg/dL) 174 mg/dL (65-99) H 05/04/18 11:48 Hemoglobin A1c 7.8 % 05/01/18 04:37 Calcium 7.4 mg/dL (8.5-10.1) L 05/03/18 05:27 Corrected Calcium 9.2 mg/dL (8.5-10.1) 05/03/18 05:27 Total Bilirubin 0.20 mg/dL (0.2-1.0) 05/03/18 05:27 AST 17 Units/L (15-37) 05/03/18 05:27 ALT 13 Units/L (12-78) 05/03/18 05:27 Alkaline Phosphatase 53 Units/L (46-116) 05/03/18 05:27 Total Protein 5.7 g/dL (6.4-8.2) L 05/03/18 05:27 Albumin 1.8 g/dL (3.4-5.0) L 05/03/18 05:27 Globulin 3.9 g/dL (2.5-4.5) 05/03/18 05:27 Albumin/Globulin Ratio 0.5 Ratio (1.1-2.1) L 05/03/18 05:27 Diagnosis Discharge Problem: Hyperkalemia, Constipation, Atelectasis of left lung, LLL pneumonia Instructions Instructions: Type 2 Diabetes Mellitus, Diagnosis, Adult Hyperkalemia, [id number] Constipation, Adult, [id number] Food Choices to Lower Your Triglycerides Hypertension Community-Acquired Pneumonia, Adult, [id number] Forms: Patient Portal
== END 2018-05-04 14:55 | disposition home or self-care (01) | DRG 178 ==
LOC: OBS 08:04 → ER 08:04 → OBSVTOIN 10:16 → OBS 12:53
PROVIDERS: ADMIT Obstetrics & Gynecology Obstetrics; ATTEND Obstetrics & Gynecology Obstetrics
DX: K59.09 Other constipation; R10.84 Generalized abdominal pain; R11.2 Nausea with vomiting, unspecified; I10 Essential (primary) hypertension; I25.10 Atherosclerotic heart disease of native coronary artery without angina pectoris; E11.65 Type 2 diabetes mellitus with hyperglycemia; E87.5 Hyperkalemia; R06.02 Shortness of breath; J15.5 Pneumonia due to Escherichia coli; J98.11 Atelectasis
CPT/HCPCS: 36415; 71010; 71045; 74022; 74177; 80053; 83036; 85025; 87040; 87070; 87077; 87186; 87205; 93005; 93010; 94640; 94760; 96365; 96367; 96374; 96375; 99284; A4222; J0610; J0696; J1815; J1956; J2405; J2550; J3490; J7030; J7050; J7613; J7620; J7644

== ENCOUNTER 2021-05-12 10:03 | Observation (INO) ==
[2021-05-12] MEDS ORDERED: ZOFRAN INJ 4 MG VIAL IVP ONE (10:21)
[2021-05-12] MEDS ORDERED: XOPENEX 1.25 MG/3 ML NEBULE NEB ONE (10:21)
[2021-05-12] MEDS ORDERED: NITROSTAT SL PRN (10:21)
[2021-05-12 10:28] VITALS: BMI 25.9
--- NOTE | 2021-05-12 10:30 | DR.HTN ---
HPI Time Seen Time Seen by Provider: 05/12/21 10:05 Primary Care Physician Primary Care Physician: DENIZ FAIRCHILD HPI Comment HPI Comment: A 70 y/o female referred to the ED from Stress Test area due to elevated BP. Stress Test was not done. The pt. states that she did not take her BP meds earlier this a.m. as she was coming for this test. In the ED, she c/o of chest tightness but no radiation. She has nausea and vomiting. She denies palpitations or diaphoresis. Complaints Chief Complaint:: PT. WAS HERE FOR AN OUT PATIENT STRESS TEST PER DR. CHANEL. CO WORKER CALLS AND STATES THEY WERE UNABLE TO PERFORM STRESS TEST BECAUSE PT'S B/P WAS HIGH. PT. WAS BROUGHT TO THE ER FOR FURTHER EVALUATION. UPON ARRIVAL TO THE ER, PT. C/O CHEST TIGHTNESS, N/V AND SHORTNESS OF BREATH. PT. STATES SHE DID NOT TAKE HER B/P MEDICATION THIS MORNING. COVID-19 Coronavirus risk:travel/contact w/high risk person: No Has patient experienced Coronavirus symptoms: Yes Coronavirus symptoms experienced: Shortness of Breath Reviewed Nurses Notes Reviewed: Yes Source History Provided: Patient Mode of Arrival Mode of Arrival: Wheelchair Timing Onset of Chief Complaint: 05/12/21 Context Circumstances: Spontaneous Onset History of: Hypertension Recent use of:: denies Cocaine, Amphetamines and Cold medications Associated Signs and Symptoms HTN Associated Signs and Symptoms: N/V and Chest Pain PMH PMH Past Medical History: Yes Past Medical History: CHF, Coronary Artery Disease, Diabetes and Hypertension Past Surgical History: Yes Surgical History: Angioplasty/Stents and Hysterectomy Past Surgical History Comment: 2 CARDIAC STENTS Family History History of Family Medical Conditions: Yes Family Medical History: Diabetes Mellitus, [place], Coronary Artery Disease, Heart Failure, Sudden Cardiac and Hypertension Social History Does patient currently use any type of tobacco product: No Have you used tobacco products in the last 12 months: No Type of Tobacco Use: None Does any household member use tobacco: No Alcohol Use: None Do you use any recreational Drugs:: No Lives With: Alone Lives Where: Home Travel Risk Coronavirus risk:travel/contact w/high risk person: No Has patient experienced Coronavirus symptoms: Yes Coronavirus symptoms experienced: Shortness of Breath Infectious screening In the last 2 months have you had wt loss of >10#?: NO Have you had fever, night sweats or hemotysis?: No Have you traveled outside the country in the last 6 months?: No Isolation: Standard ROS Review of Systems Constitutional: No Symptoms Reported Eyes: No Symptoms Reported ENTM: No Symptoms Reported Respiratoy: Short of Breath Cardiovascular: Chest Pain Gastrointestinal/Abdominal: Nausea and Vomiting Genitourinary: No Symptoms Reported Neurological: No Symptoms Reported Musculoskeletal: No Symptoms Reported Integumentary: No Symptoms Reported Hematologic/Lymphatic: No Symptoms Reported Endocrine: No Symptoms Reported Psychiatric: No Symptoms Reported PE Vital Signs Vitals: Temperature 97.9 F Pulse Rate 101 Respiratory Rate 18 Blood Pressure [Left Arm] 182/90 Blood Pressure 117/57 O2 Sat by Pulse Oximetry 93 General Limitations: No Limitations General Appearance: Alert Head Head Exam: Normal Inspection, Atraumatic and Normocephalic Eyes Eye exam: Normal Appearance and EOMI ENT ENT Exam: Normal Exam, Normal Oropharynx, Normal External Ear Exam and Mucous Membranes Moist Neck Neck Exam: Normal Inspection, Full ROM and Trachea Midline Chest Chest Inspection: Normal Inspection and Symmetric Chest Wall Rise Respiratory Respiratory Exam: Normal Lung Sounds Bilat Cardiovascular Cardiovascular Exam: Tachycardia, Normal Heart Sounds, +S1 and +S2 Abdominal Exam Abdominal Exam: Normal Inspection, Normal Bowel Sounds and Soft Extremities Extremities Exam: Full ROM and Other (varicosities distal half of legs, 1+ edema legs. ) Back Back Exam: Normal Inspection and Full ROM Neurologic Neurological Exam: Alert and Oriented X3 Psychiatric Psychiatric Exam: Normal Affect and Normal Mood Skin Skin Exam: Dry and Intact MDM Differential Diagnosis Differential Diagnosis: CHF and Hypertensive urgency COURSE Reevaluation 1st: Improved 2nd: Improved (she states that she is better with administration of the neb. treatment. ) Education/Counseling Education/Counseling: Patient, Family, Education and Counseling Educated On: Treatment, Diagnosis, Prognosis and Needs for Follow Up ROR Labs Reviewed Laboratory Results Reviewed?: Yes Result Diagrams: 05/12/21 10:15 05/12/21 10:15 Laboratory: WBC 16.9 X10^3/uL (3.6-10.0) H 05/12/21 10:15 RBC 4.68 X10^6/uL (3.5-5.4) 05/12/21 10:15 Hgb 14.6 g/dL (12.0-16.0) 05/12/21 10:15 Hct 43.5 % (36.0-47.0) 05/12/21 10:15 MCV 92.9 fL (80.0-100.0) 05/12/21 10:15 MCH 31.2 pg (27.0-34.0) 05/12/21 10:15 MCHC 33.5 g/dL (33.0-35.0) 05/12/21 10:15 RDW 13.2 % (11.6-16.5) 05/12/21 10:15 Plt Count 315 X10^3/uL (150.0-450.0) 05/12/21 10:15 MPV 7.7 fL (7.4-11.0) 05/12/21 10:15 Neut % (Auto) 68.3 % (42.0-75.0) 05/12/21 10:15 Lymph % (Auto) 23.1 % (21.0-51.0) 05/12/21 10:15 [place] % (Auto) 5.8 % (0.0-13.0) 05/12/21 10:15 Eos % (Auto) 1.8 % (0.9-2.9) 05/12/21 10:15 Baso % (Auto) 1.0 % (0.2-1.0) 05/12/21 10:15 Neut # (Auto) 11.6 x10^3/uL (2.2-4.8) H 05/12/21 10:15 Lymph # (Auto) 3.9 X10^3/uL (1.3-2.9) H 05/12/21 10:15 [place] # (Auto) 1.0 x10^3/uL (0.3-0.8) H 05/12/21 10:15 Eos # (Auto) 0.3 x10^3/uL (0.0-0.2) H 05/12/21 10:15 Baso # (Auto) 0.2 X10^3/uL (0.0-0.1) H 05/12/21 10:15 Absolute Nucleated RBC 0.0 /100WBC 05/12/21 10:15 PT 13.5 SECONDS (11.8-14.3) 05/12/21 10:15 INR Target Range - 05/12/21 10:15 INR 1.09 (0.8-1.3) 05/12/21 10:15 Sodium 136 mmol/L (136-145) 05/12/21 10:15 Corrected Sodium 139 mmol/L (136-145) 05/12/21 10:15 Potassium 4.8 mmol/L (3.5-5.1) 05/12/21 10:15 Chloride 99 mmol/L (98-107) 05/12/21 10:15 Carbon Dioxide 24.5 mmol/L (21-32) 05/12/21 10:15 BUN 11 mg/dL (7-18) 05/12/21 10:15 Creatinine 0.93 mg/dL (0.55-1.02) 05/12/21 10:15 Est GFR (MDRD) Af Amer > 60 (>60) 05/12/21 10:15 Est GFR (MDRD) Non-Af > 60 (>60) 05/12/21 10:15 Glucose 209 mg/dL (65-99) H 05/12/21 10:15 Hemoglobin A1c 7.2 % 05/12/21 10:15 Calcium 9.4 mg/dL (8.5-10.1) 05/12/21 10:15 Corrected Calcium TNP 05/12/21 10:15 Magnesium 1.8 mg/dL (1.7-2.9) 05/12/21 10:15 Total Bilirubin 0.40 mg/dL (0.2-1.0) 05/12/21 10:15 AST 18 Units/L (15-37) 05/12/21 10:15 ALT 18 Units/L (12-78) 05/12/21 10:15 Alkaline Phosphatase 53 Units/L (46-116) 05/12/21 10:15 Creatine Kinase 53 Units/L (26-192) 05/12/21 10:15 CK-MB (CK-2) < 1.0 ng/mL (0-4.0) 05/12/21 10:15 CK/CKMB % Calc 1.9 % (<4) 05/12/21 10:15 Troponin I < 0.02 ng/mL (0-1.5) 05/12/21 10:15 B-Natriuretic Peptide 980 pg/mL (0-79) H* 05/12/21 10:15 Total Protein 8.7 g/dL (6.4-8.2) H 05/12/21 10:15 Albumin 3.8 g/dL (3.4-5.0) 05/12/21 10:15 Globulin 4.9 g/dL (2.5-4.5) H 05/12/21 10:15 Albumin/Globulin Ratio 0.8 Ratio (1.1-2.1) L 05/12/21 10:15 TSH 3rd Generation 1.028 uIU/mL (0.358-3.74) 05/12/21 10:15 XRAY XRAY Interpreted by: Self X-ray Results: CXR: Borderline cardiomegaly with interstitial congestion. Radiologist report is pending. EKG Rate: 118 [place]: Normal Rhythm: Paced Opioid Opioid Risk Tool Age (Yuriy box if 16-45): No History of Preadolescent Sexual Abuse: No Total: 0 Total Score Risk Category: Low Risk Copyright: [facility] predicting aberrant behaviors Diagnosis Discharge Problem: Hypertension, uncontrolled, Acute dyspnea, COPD exacerbation, Hypothyroidism (acquired), Pacemaker Chest pain Qualifiers: Chest pain type: unspecified Qualified Code(s): R07.9 - Chest pain, unspecified CHF (congestive heart failure), NYHA class III Qualifiers: Congestive heart failure type: unspecified Qualified Code(s): I50.9 - Heart failure, unspecified Diabetes mellitus Qualifiers: Diabetes mellitus type: type 2 Diabetes mellitus senior living insulin use: without long term care phlebotomist use Diabetes mellitus complication status: without complication Qualified Code(s): E11.9 - Type 2 diabetes mellitus without complications Instructions Forms: Precautions for COVID19 Patient Portal Social Distancing ADDITIONAL NOTES Additional Notes Additional Notes: CHEST, 1 VIEW HISTORY: CP, N/V, DYSPNEA Study: AP view of the chest. Comparison:None Findings: The cardiomediastinal silhouette is normal. No focal consolidations, pleural effusions or pneumothorax. Osseous structures demonstrate no acute abnormality. Bilateral hyperexpansion and interstitial prominence. IMPRESSION: 1. No acute cardiopulmonary process. 2. Findings of COPD. Electronically signed by: RAS MCCLURE (May 12, 2021 11:22:35)
[2021-05-12 10:34] LABS: BASOPHILS # (AUTO) 0.2 X10^3/uL (0.0-0.1); EOSINOPHILS # (AUTO) 0.3 x10^3/uL (0.0-0.2); EOSINOPHILS % (AUTO) 1.8 % (0.9-2.9); HEMATOCRIT 43.5 % (36.0-47.0); HEMOGLOBIN 14.6 g/dL (12.0-16.0); LYMPHOCYTES # (AUTO) 3.9 X10^3/uL (1.3-2.9); LYMPHOCYTES % (AUTO) 23.1 % (21.0-51.0); MEAN CORPUSCULAR HEMOGLOBIN 31.2 pg (27.0-34.0); MEAN CORPUSCULAR HGB CONC 33.5 g/dL (33.0-35.0); MEAN CORPUSCULAR VOLUME 92.9 fL (80.0-100.0); MEAN PLATELET VOLUME 7.7 fL (7.4-11.0); MONOCYTES % (AUTO) 5.8 % (0.0-13.0); NEUTROPHILS # (AUTO) 11.6 x10^3/uL (2.2-4.8); NEUTROPHILS % (AUTO) 68.3 % (42.0-75.0); PLATELET COUNT 315 X10^3/uL (150.0-450.0); RED BLOOD COUNT 4.68 X10^6/uL (3.5-5.4); RED CELL DISTRIBUTION WIDTH 13.2 % (11.6-16.5); WHITE BLOOD COUNT 16.9 X10^3/uL (3.6-10.0)
[2021-05-12] MEDS ORDERED: ZOFRAN INJ 4 MG VIAL ONE (10:37)
[2021-05-12 11:01] LABS: ALANINE AMINOTRANSFERASE 18 Units/L (12-78); ALBUMIN 3.8 g/dL (3.4-5.0); ALKALINE PHOSPHATASE 53 Units/L (46-116); ASPARTATE AMINO TRANSFERASE 18 Units/L (15-37); BLOOD UREA NITROGEN 11 mg/dL (7-18); CALCIUM 9.4 mg/dL (8.5-10.1); CARBON DIOXIDE 24.5 mmol/L (21-32); CHLORIDE 99 mmol/L (98-107); CKMB % 1.9 % (<4); COR NA(FOR HYPERGLY) 139 mmol/L (136-145); CREATINE KINASE 53 Units/L (26-192); CREATINE KINASE MB < 1.0 ng/mL (0-4.0); CREATININE 0.93 mg/dL (0.55-1.02); SODIUM 136 mmol/L (136-145); TOTAL PROTEIN 8.7 g/dL (6.4-8.2); TROPONIN I < 0.02 ng/mL (0-1.5); eGFR NON BLACK RACES > 60 (>60)
[2021-05-12] MEDS ORDERED: LASIX IVP ONE ×2 (11:14→11:28)
--- NOTE | 2021-05-12 11:24 | RAD ---
CHEST, 1 VIEWHISTORY: CP, N/V, DYSPNEAStudy: AP view of the chest.Comparison:NoneFindings:The cardiomediastinal silhouette is normal. No focal consolidations, pleural effusions or pneumothorax. Osseous structures demonstrate no acute abnormality. Bilateral hyperexpansion and interstitial prominence.IMPRESSION:1. No acute cardiopulmonary process.2. Findings of COPD.Electronically signed by: RAS MCCLURE (May 12, 2021 11:22:35)
[2021-05-12 11:39] LABS: HEMOGLOBIN A1C 7.2 %
[2021-05-12 11:48] LABS: TSH (3RD GENERATION) 1.028 uIU/mL (0.358-3.74)
[2021-05-12 11:53] LABS: ABG ALLEN TEST POS; ABG BASE EXCESS -1.9 mmol/L (-2.0-2.0); ABG HCO3 22.2 mmol/L (22-26)
[2021-05-12 12:42] LABS: BILIRUBIN,URINE NEGATIVE (NEGATIVE); BLOOD/HEMOGLOBIN,URINE 1+ (NEGATIVE); GLUCOSE, URINE 3+ (NEGATIVE); KETONES,URINE NEGATIVE (NEGATIVE); LEUKOCYTE ESTERASE ,URINE NEGATIVE (NEGATIVE); NITRITES,URINE NEGATIVE (NEGATIVE); PH,URINE 6.5 (5.0 - 8.0); PROTEIN,URINE 4+ (NEGATIVE); UROBILINOGEN,URINE NORMAL (NORMAL)
[2021-05-12 13:03] LABS: APPEARANCE,URINE CLEAR (CLEAR); BACTERIA,URINE TRACE /HPF (NEGATIVE); COLOR,URINE YELLOW (YELLOW); RBC,URINE 0-2 /HPF (0-3); SQUAMOUS EPITHELIAL CELL,UR FEW /HPF (NEGATIVE)
[2021-05-12] MEDS ORDERED: SOLU-Medrol 40 MG VIAL IVP ONE (13:05)
[2021-05-12] MEDS ORDERED: SOLU-Medrol 40 MG VIAL ONE (13:08)
[2021-05-12] MEDS ORDERED: VITAMIN D (1.25MG) PO SCH (14:12)
[2021-05-12] MEDS ORDERED: XANAX PO PRN (14:12)
[2021-05-12] MEDS ORDERED: CATAPRES TAB 0.1 MG PO PRN (14:12)
--- NOTE | 2021-05-12 14:53 | DR.H&P ---
H&P History & Physical for Day of: H&P Date: 05/12/21 Chief Complaint Chief Complaint: Chest tightness Accelerated Hypertension Headaches Allergies Allergies Allergy/AdvReac Type Severity Reaction Status Date / Time magnesium Allergy Verified 05/12/21 10:24 oxycodone [From Percocet] Allergy Verified 05/12/21 10:24 History of Present Illness History of Present Illness: Pt is a 70 year old female past medical history of CHF, Pacemaker, DMT2, HTN, presenting with chest tightness and headaches. She did not take her blood pressure medications this morning in anticipation for scheduled stress test. When she arrived she was noted to have significantly elevated blood pressure 200s systolic and associated nausea, headaches, shortness of breath and chest tightness. In the ED she received clonidine and IV Lasix 40mg. Labs/imaging: Wbc 13.7, Hgb 12.7, Plt 285, Na 134, K 5.8, Creatinine 1.10, Glucose 235, Troponin negative, Ekg ventricular paced rhythm, UA negative, CXR: no acute cardiopulmonary findings. Pt was monitored on telemetry, her blood pressure medications restarted. Pt responded well to IV Lasix. Blood pressure back to normal range and pulse appropriate. Pt no longer complaining of symptoms on discharge. Morning potassium level mildly elevated, kayexalate ordered x1 dose and pt instructed not to take home potassium supplements. She is to follow up with pcp and repeat BMP. Pt discharged in stable condition, instructed to follow up with pcp in 3-5 days. Past Medical History Past Medical History: CHF, Coronary Artery Disease, Diabetes and Hypertension Past Surgical History Surgical History: Angioplasty/Stents and Hysterectomy Family History Family Medical History: Diabetes Mellitus, [place], Coronary Artery Disease, Heart Failure, Sudden Cardiac and Hypertension Social History Does patient currently use any type of tobacco product: No Have you used tobacco products in the last 12 months: No Type of Tobacco Use: None Does any household member use tobacco: No Alcohol Use: None Medications Home Medications: magnesium Allergy (Verified 05/12/21 10:24) oxycodone [From Percocet] Allergy (Verified 05/12/21 10:24) CONTINUE taking the following medications acetaminophen-codeine 1 tab PO TID PRN 05/12/21 [History] famotidine 20 mg PO BID 05/12/21 [History] fenofibrate 160 mg PO HS 05/12/21 [History] ferrous sulfate 325 mg PO BID 05/12/21 [History] furosemide 20 mg PO DAILY PRN 05/12/21 [History] levothyroxine 100 mcg PO DAILY 05/12/21 [History] lisinopril-hydrochlorothiazide 1 tab PO DAILY 05/12/21 [History] metformin 500 mg PO BID 05/12/21 [History] pantoprazole 40 mg PO DAILY 05/12/21 [History] potassium chloride 10 meq PO QID 05/12/21 [History] Labs Result Diagrams: 05/13/21 05:50 05/13/21 07:40 Labs: Laboratory WBC 16.9 X10^3/uL (3.6-10.0) H 05/12/21 10:15 RBC 4.68 X10^6/uL (3.5-5.4) 05/12/21 10:15 Hgb 14.6 g/dL (12.0-16.0) 05/12/21 10:15 Hct 43.5 % (36.0-47.0) 05/12/21 10:15 MCV 92.9 fL (80.0-100.0) 05/12/21 10:15 MCH 31.2 pg (27.0-34.0) 05/12/21 10:15 MCHC 33.5 g/dL (33.0-35.0) 05/12/21 10:15 RDW 13.2 % (11.6-16.5) 05/12/21 10:15 Plt Count 315 X10^3/uL (150.0-450.0) 05/12/21 10:15 MPV 7.7 fL (7.4-11.0) 05/12/21 10:15 Neut % (Auto) 68.3 % (42.0-75.0) 05/12/21 10:15 Lymph % (Auto) 23.1 % (21.0-51.0) 05/12/21 10:15 [place] % (Auto) 5.8 % (0.0-13.0) 05/12/21 10:15 Eos % (Auto) 1.8 % (0.9-2.9) 05/12/21 10:15 Baso % (Auto) 1.0 % (0.2-1.0) 05/12/21 10:15 Neut # (Auto) 11.6 x10^3/uL (2.2-4.8) H 05/12/21 10:15 Lymph # (Auto) 3.9 X10^3/uL (1.3-2.9) H 05/12/21 10:15 [place] # (Auto) 1.0 x10^3/uL (0.3-0.8) H 05/12/21 10:15 Eos # (Auto) 0.3 x10^3/uL (0.0-0.2) H 05/12/21 10:15 Baso # (Auto) 0.2 X10^3/uL (0.0-0.1) H 05/12/21 10:15 Absolute Nucleated RBC 0.0 /100WBC 05/12/21 10:15 PT 13.5 SECONDS (11.8-14.3) 05/12/21 10:15 INR Target Range - 05/12/21 10:15 INR 1.09 (0.8-1.3) 05/12/21 10:15 Sample Site Rra 05/12/21 11:50 ABG pH 7.410 (7.35-7.45) 05/12/21 11:50 ABG pCO2 35.0 mmHg (35.0-45.0) 05/12/21 11:50 ABG pO2 61.0 mmHg (80.0-100.0) L 05/12/21 11:50 ABG HCO3 22.2 mmol/L (22-26) 05/12/21 11:50 ABG O2 Saturation 91.0 % (90-100) 05/12/21 11:50 ABG Base Excess -1.9 mmol/L (-2.0-2.0) 05/12/21 11:50 [place] Test Pos 05/12/21 11:50 A-a Gradient 45.0 mmHg 05/12/21 11:50 FiO2 21.0 05/12/21 11:50 Blood Gas Comments Pt rebecca well eb 05/12/21 11:50 Sodium 136 mmol/L (136-145) 05/12/21 10:15 Corrected Sodium 139 mmol/L (136-145) 05/12/21 10:15 Potassium 4.8 mmol/L (3.5-5.1) 05/12/21 10:15 Chloride 99 mmol/L (98-107) 05/12/21 10:15 Carbon Dioxide 24.5 mmol/L (21-32) 05/12/21 10:15 BUN 11 mg/dL (7-18) 05/12/21 10:15 Creatinine 0.93 mg/dL (0.55-1.02) 05/12/21 10:15 Est GFR (MDRD) Af Amer > 60 (>60) 05/12/21 10:15 Est GFR (MDRD) Non-Af > 60 (>60) 05/12/21 10:15 Glucose 209 mg/dL (65-99) H 05/12/21 10:15 Hemoglobin A1c 7.2 % 05/12/21 10:15 Calcium 9.4 mg/dL (8.5-10.1) 05/12/21 10:15 Corrected Calcium TNP 05/12/21 10:15 Magnesium 1.8 mg/dL (1.7-2.9) 05/12/21 10:15 Total Bilirubin 0.40 mg/dL (0.2-1.0) 05/12/21 10:15 AST 18 Units/L (15-37) 05/12/21 10:15 ALT 18 Units/L (12-78) 05/12/21 10:15 Alkaline Phosphatase 53 Units/L (46-116) 05/12/21 10:15 Creatine Kinase 53 Units/L (26-192) 05/12/21 10:15 CK-MB (CK-2) < 1.0 ng/mL (0-4.0) 05/12/21 10:15 CK/CKMB % Calc 1.9 % (<4) 05/12/21 10:15 Troponin I < 0.02 ng/mL (0-1.5) 05/12/21 10:15 B-Natriuretic Peptide 980 pg/mL (0-79) H* 05/12/21 10:15 Total Protein 8.7 g/dL (6.4-8.2) H 05/12/21 10:15 Albumin 3.8 g/dL (3.4-5.0) 05/12/21 10:15 Globulin 4.9 g/dL (2.5-4.5) H 05/12/21 10:15 Albumin/Globulin Ratio 0.8 Ratio (1.1-2.1) L 05/12/21 10:15 TSH 3rd Generation 1.028 uIU/mL (0.358-3.74) 05/12/21 10:15 Specimen Type Random urine 05/12/21 12:03 Urine Color Yellow (YELLOW) 05/12/21 12:03 Urine Appearance Clear (CLEAR) 05/12/21 12:03 Urine pH 6.5 (5.0 - 8.0) 05/12/21 12:03 Ur Specific [place] 1.010 (1.000-1.030) 05/12/21 12:03 Urine Protein 4+ (NEGATIVE) 05/12/21 12:03 Urine Glucose (UA) 3+ (NEGATIVE) 05/12/21 12:03 Urine Ketones Negative (NEGATIVE) 05/12/21 12:03 Urine Occult Blood 1+ (NEGATIVE) 05/12/21 12:03 Urine Nitrite Negative (NEGATIVE) 05/12/21 12:03 Urine Bilirubin Negative (NEGATIVE) 05/12/21 12:03 Urine Urobilinogen Normal (NORMAL) 05/12/21 12:03 Ur Leukocyte Esterase Negative (NEGATIVE) 05/12/21 12:03 Urine RBC 0-2 /HPF (0-3) 05/12/21 12:03 Urine WBC 0-2 /HPF (0-5) 05/12/21 12:03 Ur Squamous Epith Cells Few /HPF (NEGATIVE) 05/12/21 12:03 Urine Bacteria Trace /HPF (NEGATIVE) 05/12/21 12:03 Ur Culture Indicated? No/not indicated 05/12/21 12:03 Review of Systems Constitutional: No Symptoms Reported Eyes: No Symptoms Reported ENT: No Symptoms Reported Respiratory: Shortness of Breath Cardiovascular: Chest Pain Gastrointestinal: Nausea; denies Abdominal Pain Genitourinary: No Symptoms Reported Musculoskeletal: No Symptoms Reported Skin: No Symptoms Reported Neurological: No Symptoms Reported Physical Exam Vital Signs: Temperature 98.5 F Pulse Rate [Bilateral Radial] 99 Pulse Rate 99 Respiratory Rate 20 Blood Pressure [Left Arm] 156/65 Blood Pressure 146/68 O2 Sat by Pulse Oximetry 99 Oriented: Normal Eyes: Normal Ear: Normal Nose: Normal Throat: Normal Respiratory: Clear Throughout Cardiovascular: Normal : Normal Auscultation: Bowel Sounds: Normal Palpation: Normal Tenderness: Normal Skin: Normal Musculoskeletal: Normal Psychiatric: Normal Mood Description: Calm and Appropriate Affect: Normal Speech Pattern: Clear and Appropriate Assessment/Plan (1) Accelerated hypertension: Status: Acute (2) CHF exacerbation: Status: Acute (3) Hyperkalemia: Status: Acute Review H&P Reviewed: Yes Patient was examined?: Yes
[2021-05-12] MEDS: PROVENTIL NEB TX 0.083% 2.5MG/ 3ML NEB SCH ×3 (16:30→20:30)
[2021-05-12 16:51] LABS: CKMB % 5.5 % (<4); CREATINE KINASE MB 2.2 ng/mL (0-4.0); TROPONIN I 0.13 ng/mL (0-1.5)
[2021-05-12] MEDS: TOPROL XL PO SCH (17:03)
[2021-05-12] MEDS: MICRO K EXTEN CAP 10 MEQ PO SCH ×3 (17:10→20:57)
[2021-05-12] MEDS ORDERED: TOPROL XL PO STA (19:42)
[2021-05-12] MEDS ORDERED: GLUCOPHAGE ONE (20:01)
[2021-05-12] MEDS ORDERED: LOPRESSOR INJ 5 MG AMP IVP ONE (20:07)
[2021-05-12] MEDS: PULMICORT NEB TX 0.5 MG NEB SCH (20:30)
[2021-05-12] MEDS: HEMOCYTE-PLUS PO SCH (20:56)
[2021-05-12] MEDS: GLUCOPHAGE PO SCH (20:57)
[2021-05-12] MEDS: PEPCID TAB 20 MG PO SCH (20:58)
[2021-05-12] MEDS ORDERED: LIPITOR TAB 40 MG PO SCH (21:00)
[2021-05-12] MEDS ORDERED: REFLEX: PROVENTIL NEB & PulmiCORT NEB~ NEB SCH (21:00)
[2021-05-12] MEDS ORDERED: TRICOR TAB 160 MG PO SCH (21:00)
[2021-05-12] MEDS: SOLU-Medrol 40 MG VIAL IVP SCH (21:02)
[2021-05-12 23:01] LABS: CKMB % 3.3 % (<4); CREATINE KINASE MB 3.8 ng/mL (0-4.0); TROPONIN I 0.31 ng/mL (0-1.5)
--- NOTE | 2021-05-13 06:05 | RAD ---
HISTORYDYSPNEA/COPDSTUDYCHEST, 1 VIEWCOMPARISONOne day prior.TECHNIQUEAP view of the chestFINDINGSLeft chest wall pacemaker with leads in good position. Cardiac and mediastinal contours are within normal limits. No consolidation or segmental lung collapse. Stable lung hyperinflation no definite pleural effusion or pneumothorax.IMPRESSIONStable hyperinflation. No acute pulmonary process.Electronically signed by: Didier Sylvester (May 13, 2021 06:04:04)
[2021-05-13 06:34] LABS: BASOPHILS % (AUTO) 0.3 % (0.2-1.0); HEMATOCRIT 37.2 % (36.0-47.0); HEMOGLOBIN 12.7 g/dL (12.0-16.0); LYMPHOCYTES # (AUTO) 1.2 X10^3/uL (1.3-2.9); LYMPHOCYTES % (AUTO) 8.8 % (21.0-51.0); MEAN CORPUSCULAR HEMOGLOBIN 31.5 pg (27.0-34.0); MEAN CORPUSCULAR HGB CONC 34.2 g/dL (33.0-35.0); MEAN PLATELET VOLUME 8.3 fL (7.4-11.0); MONOCYTES # (AUTO) 0.4 x10^3/uL (0.3-0.8); NEUTROPHILS # (AUTO) 12.1 x10^3/uL (2.2-4.8); NEUTROPHILS % (AUTO) 87.9 % (42.0-75.0); PLATELET COUNT 285 X10^3/uL (150.0-450.0); RED BLOOD COUNT 4.04 X10^6/uL (3.5-5.4); RED CELL DISTRIBUTION WIDTH 13.2 % (11.6-16.5); WHITE BLOOD COUNT 13.7 X10^3/uL (3.6-10.0)
[2021-05-13 07:00] LABS: ALANINE AMINOTRANSFERASE 17 Units/L (12-78); ALBUMIN 3.1 g/dL (3.4-5.0); ALKALINE PHOSPHATASE 43 Units/L (46-116); ASPARTATE AMINO TRANSFERASE 31 Units/L (15-37); BLOOD UREA NITROGEN 21 mg/dL (7-18); CALCIUM 9.5 mg/dL (8.5-10.1); CARBON DIOXIDE 20.2 mmol/L (21-32); COR CA(FOR HYPOALB) 10.2 mg/dL (8.5-10.1); COR NA(FOR HYPERGLY) 137 mmol/L (136-145); SODIUM 134 mmol/L (136-145); TOTAL PROTEIN 7.6 g/dL (6.4-8.2); eGFR NON BLACK RACES 52 (>60)
[2021-05-13] MEDS ORDERED: LASIX PO PRN (07:55)
[2021-05-13 07:56] LABS: CHLORIDE 100 mmol/L (98-107)
[2021-05-13] MEDS: PROVENTIL NEB TX 0.083% 2.5MG/ 3ML NEB SCH (08:54)
[2021-05-13] MEDS: PULMICORT NEB TX 0.5 MG NEB SCH (08:54)
[2021-05-13] MEDS ORDERED: ESTRACE PO SCH (09:00)
[2021-05-13] MEDS ORDERED: PROTONIX TAB 40 MG PO SCH (09:00)
[2021-05-13] MEDS ORDERED: SYNTHROID 100 mcg TAB PO SCH (09:00)
[2021-05-13] MEDS ORDERED: ZESTORETIC 20/25 MG PO SCH (09:00)
[2021-05-13] MEDS ORDERED: ASPIRIN EC 81 MG PO SCH (09:00)
[2021-05-13] MEDS ORDERED: ZESTRIL TAB 40 MG PO SCH (09:00)
[2021-05-13] MEDS ORDERED: PLAVIX PO SCH (09:00)
[2021-05-13] MEDS ORDERED: GLUCOPHAGE ONE (09:33)
[2021-05-13] MEDS: GLUCOPHAGE PO SCH (09:44)
[2021-05-13] MEDS: MICRO K EXTEN CAP 10 MEQ PO SCH (09:45)
[2021-05-13] MEDS: TOPROL XL PO SCH (09:46)
[2021-05-13] MEDS: PEPCID TAB 20 MG PO SCH (09:46)
[2021-05-13] MEDS: SOLU-Medrol 40 MG VIAL IVP SCH (09:47)
[2021-05-13] MEDS: HEMOCYTE-PLUS PO SCH (09:47)
[2021-05-13] MEDS ORDERED: KAYEXALATE SUSP PO ONE ×2 (10:00→14:00)
[2021-05-13 11:10] VITALS: BP 142/64
== END 2021-05-13 13:40 | disposition home health service (06) ==
LOC: MED/SURG 10:03 → ER 10:03 → MED/SURG 13:13
PROVIDERS: ADMIT Family Medicine; ATTEND Family Medicine
DX: E87.5 Hyperkalemia; R07.89 Other chest pain; Z95.0 Presence of cardiac pacemaker; E11.65 Type 2 diabetes mellitus with hyperglycemia; I50.9 Heart failure, unspecified; R94.31 Abnormal electrocardiogram [ECG] [EKG]; R06.02 Shortness of breath; I11.0 Hypertensive heart disease with heart failure; E03.8 Other specified hypothyroidism; I25.10 Atherosclerotic heart disease of native coronary artery without angina pectoris